=== PATIENT | female | born 1980 | race American Indian/Alaskan Native ===

== ENCOUNTER 2016-03-04 06:02 | Emergency (ER) | payer MEDICAID ==
[2016-03-04 06:15] VITALS: BP 178/100
--- NOTE | 2016-03-04 09:43 | XRay Report ---
ROUTINE CHEST, TWO VIEWS: HISTORY: Cough. The trachea, heart, mediastinal contour, lung simons and bony thorax are unremarkable. IMPRESSION: Unremarkable chest x-ray.
[2016-03-04] MEDS ORDERED: TYLENOL #3 PO ONE (12:01)
--- NOTE | 2016-03-04 12:09 | Emergency Department Report ---
- General Chief Complaint: Upper Respiratory Infection Stated Complaint: BID,MUCUS Time Seen by Provider: 03/04/16 12:01 Source: patient Mode of arrival: Ambulatory Limitations: No Limitations - History of Present Illness Initial Comments: Patient reports intermittent productive cough with yellow sputum, body aches, fever and nasal congestion that started one month ago. She reports she has tried [id number] cough medication, however to no avail. LMP 02/25/16 MD Complaint: fever, cough, rhinorrhea, nasal congestion Onset/Timin -: month(s) Severity: severe Severity scale (0 -10): 8 Quality: dull, aching Consistency: intermittent Improves With: nothing Worsens With: activity, deep breaths, changing head position Context: sick contacts Associated Symptoms: fever, myalgias, rhinorrhea, nasal congestion, cough. denies: chills, diaphoresis, headache, sore throat, stiff neck, chest pain, shortness of breath, abdominal pain, nausea, vomiting, diarrhea, dysuria, rash, confusion, right sweats, weight loss, epistaxis, hoarseness, ear pain Treatments Prior to Arrival: "cold medicine" - Related Data Home Medications Medication Instructions Recorded Confirmed Last Taken Labetalol [Normodyne TAB] 100 mg PO BID 10/07/15 10/07/15 1 Day Ago 2199 Caplet 1 mg PO DAILY 10/07/15 10/07/15 1 Day Ago 2199 Previous Rx's Medication Instructions Recorded Last Taken Type oxyCODONE /ACETAMINOPHEN [Percocet 1 tab PO Q6HR PRN #40 tablet 10/07/15 Unknown Rx 5/325] Ferrous Sulfate [Feosol 325 MG tab] 325 mg PO BID #120 tablet 10/09/15 Unknown Rx Ibuprofen [Motrin 800 MG tab] 800 mg PO Q8HR PRN #40 tablet 10/09/15 Unknown Rx Acetaminophen/Codeine [Tylenol #3] 1 tab PO Q6H PRN #12 tab 03/04/16 Unknown Rx Amoxicillin [Amoxicillin TAB] 875 mg PO BID #20 tablet 03/04/16 Unknown Rx Cetirizine HCl [ZyrTEC] 10 mg PO DAILY #30 capsule 03/04/16 Unknown Rx Fluticasone [Flonase] 1 spray NS QDAY #1 bottle 03/04/16 Unknown Rx Allergies Allergy/AdvReac Type Severity Reaction Status Date / Time No Known Allergies Allergy Unverified 08/07/15 22:20 ED Review of Systems ROS: Stated complaint: BID,MUCUS Other details as noted in HPI Constitutional: fever. denies: chills, diaphoresis, malaise, weakness Eyes: denies: eye pain, eye discharge, vision change ENT: congestion (nasal). denies: ear pain, throat pain, dental pain, hearing loss, epistaxis Respiratory: cough (productive for yellow phlegm). denies: orthopnea, shortness of breath, SOB with exertion, SOB at rest, stridor, wheezing Cardiovascular: chest pain (discomfort from coughing). denies: palpitations, dyspnea on exertion, orthopnea, edema, syncope, paroxysmal nocturnal dyspnea Gastrointestinal: denies: abdominal pain, nausea, vomiting, diarrhea, constipation Musculoskeletal: arthralgia (generalized body aches). denies: back pain, joint swelling, myalgia Skin: denies: rash, lesions Neurological: denies: headache, weakness, numbness, paresthesias, confusion, abnormal gait, vertigo Hematological/Lymphatic: denies: easy bleeding, easy bruising, swollen glands ED Past Medical Hx - Past Medical History Previous Medical History?: Yes Hx Hypertension: Yes Hx Congestive Heart Failure: No Hx Diabetes: No Hx Deep Vein Thrombosis: No Hx GERD: Yes Hx Renal Disease: No Hx Sickle Cell Disease: No Hx Seizures: No Hx Psychiatric Treatment: Yes (PTSD, Anxiety,) Hx Asthma: Yes Hx COPD: No Hx HIV: No Additional medical history: neuropathy, 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, gum disease - Surgical History Past Surgical History?: Yes Additional Surgical History: - Social History Smoking Status: Never Smoker Substance Use Type: None - Medications Home Medications: Home Medications Medication Instructions Recorded Confirmed Last Taken Type Labetalol [Normodyne TAB] 100 mg PO BID 10/07/15 10/07/15 1 Day Ago History 2199 Caplet 1 mg PO DAILY 10/07/15 10/07/15 1 Day Ago History 2199 oxyCODONE /ACETAMINOPHEN [Percocet 1 tab PO Q6HR PRN #40 tablet 10/07/15 Unknown Rx 5/325] Ferrous Sulfate [Feosol 325 MG tab] 325 mg PO BID #120 tablet 10/09/15 Unknown Rx Ibuprofen [Motrin 800 MG tab] 800 mg PO Q8HR PRN #40 tablet 10/09/15 Unknown Rx Acetaminophen/Codeine [Tylenol #3] 1 tab PO Q6H PRN #12 tab 03/04/16 Unknown Rx Amoxicillin [Amoxicillin TAB] 875 mg PO BID #20 tablet 03/04/16 Unknown Rx Cetirizine HCl [ZyrTEC] 10 mg PO DAILY #30 capsule 03/04/16 Unknown Rx Fluticasone [Flonase] 1 spray NS QDAY #1 bottle 03/04/16 Unknown Rx ED Physical Exam - General Limitations: No Limitations General appearance: alert, in no apparent distress, obese - Head Head exam: Present: atraumatic, normocephalic - Eye Eye exam: Present: normal appearance, PERRL, EOMI Pupils: Present: normal accommodation - ENT ENT exam: Present: normal orophraynx, mucous membranes moist, TM's normal bilaterally, normal external ear exam, other (swelling to the nasal turbinates with yellow mucus drainage). Absent: mucous membranes dry - Expanded ENT Exam Expanded Ear exam: Present: normal external inspection. Absent: auricular hematoma, auricular trauma Mouth exam: Present: normal external inspection, tongue normal. Absent: drooling, trismus, muffled voice, tongue elevation, laceration Teeth exam: Present: normal inspection Throat exam: Positive: normal inspection. Negative: tonsillar erythema, tonsillomegaly, tonsillar exudate, R peritonsillar mass, L peritonsillar mass - Neck Neck exam: Present: normal inspection, full ROM. Absent: tenderness, meningismus, lymphadenopathy, thyromegaly - Respiratory Respiratory exam: Present: normal lung sounds bilaterally. Absent: respiratory distress, wheezes, rales, rhonchi, stridor, chest wall tenderness, accessory muscle use, decreased breath sounds, prolonged expiratory - Cardiovascular Cardiovascular Exam: Present: regular rate, normal rhythm, normal heart sounds. Absent: systolic murmur, diastolic murmur, rubs, gallop - GI/Abdominal GI/Abdominal exam: Present: soft, normal bowel sounds - Extremities Exam Extremities exam: Present: normal inspection, full ROM, normal capillary refill. Absent: tenderness, pedal edema, joint swelling, calf tenderness - Back Exam Back exam: Present: normal inspection. Absent: CVA tenderness (R), CVA tenderness (L) - Neurological Exam Neurological exam: Present: alert, oriented X3, CN II-XII intact, normal gait, reflexes normal. Absent: motor sensory deficit - Skin Skin exam: Present: warm, dry, intact, normal color. Absent: rash ED Course Vital Signs 03/04/16 06:09 Temperature 98.2 F Pulse Rate 88 Respiratory 20 Rate Blood Pressure 178/100 O2 Sat by Pulse 99 Oximetry - Reevaluation(s) Reevaluation #1: 03/04/16 12:03 Pain medication with codeine ordered ED Medical Decision Making - Lab Data Vital Signs 03/04/16 06:09 Temperature 98.2 F Pulse Rate 88 Respiratory 20 Rate Blood Pressure 178/100 O2 Sat by Pulse 99 Oximetry - Radiology Data Radiology results: image reviewed ROUTINE CHEST, TWO VIEWS: HISTORY: Cough. The trachea, heart, mediastinal contour, lung simons and bony thorax are unremarkable. IMPRESSION: Unremarkable chest x-ray. - Medical Decision Making During the course of ED, radiology studies and pain medication was ordered. The imaging study revealed unremarkable chest x-ray. Patient was sent home with prescriptions for Tylenol with #3, Zyrtec, Flonase and Amoxicillin, instructed to follow up with selective referrals given at discharge, she verbalize understanding - Differential Diagnosis Sinusitis, Upper Respiratory Infection, Rhinorrhea Critical care attestation.: If time is entered above; I have spent that time in minutes in the direct care of this critically ill patient, excluding procedure time. ED Disposition Clinical Impression: Sinusitis Qualifiers: Sinusitis location: unspecified location Chronicity: acute Recurrence: non- recurrent Qualified Code(s): J01.90 - Acute sinusitis, unspecified Disposition: DISCHARGED TO HOME OR SELFCARE Is pt being admited?: No Does the pt Need Aspirin: No Condition: Stable Instructions: Sinusitis (ED) Additional Instructions: Take medication as directed. No drinking, driving off for a heavy machinery while taking pain medication. Follow up with the selective referrals given at discharge. Prescriptions: Acetaminophen/Codeine [Tylenol #3] 1 tab PO Q6H PRN #12 tab PRN Reason: Pain Amoxicillin [Amoxicillin TAB] 875 mg PO BID #20 tablet Fluticasone [Flonase] 1 spray NS QDAY #1 bottle Cetirizine HCl [ZyrTEC] 10 mg PO DAILY #30 capsule Referrals: PRIMARY CARE, [Primary Care Provider] - 3-5 Days [facility] [Outside] - 3-5 Days Forms: Work/School Release Form(ED), Accompanied Note Time of Disposition: 12:19
== END 2016-03-04 12:50 | disposition home or self-care (01) ==
LOC: ED 06:02
DX: J01.90 Acute sinusitis, unspecified (principal); I10 Essential (primary) hypertension; K21.9 Gastro-esophageal reflux disease without esophagitis; J45.909 Unspecified asthma, uncomplicated
CPT/HCPCS: 71020; 99283